=== PATIENT | male | born 2000 | race Two or more races ===

== ENCOUNTER 2021-03-03 19:01 | Emergency (ER) | payer SELFPAY ==
[~2021-03-03] VITALS: Ht 154.9 cm; Wt 86.2 kg
[2021-03-03 21:37] LABS: Albumin 4.1 g/dL (3.4-5.0); Calcium 8.8 mg/dL (8.5-10.1)
[2021-03-03 21:42] LABS: BUN/Creatinine Ratio 11.6; Bilirubin, Total 0.4 mg/dL (0.2-1.0)
[2021-03-03 23:02] VITALS: BP 131/78
== END 2021-03-03 23:15 | disposition home or self-care (01) ==
LOC: ER 19:06
DX: K29.70 Gastritis, unspecified, without bleeding (principal); F12.10 Cannabis abuse, uncomplicated
CPT/HCPCS: 36415; 74176; 80053